=== PATIENT | male | born 1990 | race Caucasian/White ===

== ENCOUNTER 2021-01-26 10:42 | Emergency (ER) | payer OTHER ==
[~2021-01-26] VITALS: Ht 182.9 cm; Wt 118.2 kg
[2021-01-26 10:46] VITALS: BP 149/103
== END 2021-01-26 12:54 | disposition left against medical advice (07) ==
LOC: EMS 10:50
DX: R07.9 Chest pain, unspecified (principal); Z53.21 Procedure and treatment not carried out due to patient leaving prior to being seen by health care provider